=== PATIENT | male | born 1970 | race Caucasian/White ===

== ENCOUNTER 2016-09-02 15:59 | Observation (INO) | payer SELFPAY ==
[~2016-09-02] VITALS: Ht 180.3 cm; Wt 97.7 kg
[2016-09-02 16:44] LABS: HEMATOCRIT 46.7 % (42.0-54.0); HEMOGLOBIN 16.7 g/dL (13.5-17.5); MCHC 35.8 g/dL (31.0-37.0); MCV 92.3 fL (80.0-100.0); MEAN PLATELET VOLUME 11.1 fL (7.4-10.4); PLATELET COUNT 229 10x3/uL (130-400); RBC 5.06 10x6/uL (4.20-6.10); RDW 14.1 % (11.5-14.5); WBC 21.4 10x3/uL (4.8-10.8)
[2016-09-02 16:45] LABS: APPEARANCE CLEAR (CLEAR); BILIRUBIN NEGATIVE (NEGATIVE); COLOR STRAW (YELLOW); GLUCOSE NEGATIVE (NEGATIVE); KETONE NEGATIVE (NEGATIVE); NITRITE NEGATIVE (NEGATIVE); PROTEIN NEGATIVE (NEGATIVE); SPECIFIC GRAVITY 1.005 (1.005-1.020); UROBILINOGEN NORMAL (NORMAL)
[2016-09-02 16:46] LABS: BACTERIA FEW /hpf (NONE SEEN); EPITHELIAL CELLS 0-5 /hpf (0-5); LEUKOCYTE ESTERASE TRACE (NEGATIVE); RED CELLS - URINE RARE /hpf (0-5); SPERMATOZOA PRESENT /hpf (NONE SEEN); WHITE CELLS - URINE 0-5 /hpf (0-5)
[2016-09-02 16:59] LABS: ALBUMIN 3.9 g/dL (3.4-5.0); ALKALINE PHOSPHATASE 88 U/L (46-116); ALT (SGPT) 42 U/L (10-68); BILIRUBIN - TOTAL 0.51 mg/dL (0.2-1.3); CALC OSMOLALITY 272 mosm/kg (275-300); CALCIUM 9.5 mg/dL (8.5-10.1); CARBON DIOXIDE 26.5 mmol/L (21.0-32.0); CHLORIDE - SERUM 102 mmol/L (98-107); CREATININE - SERUM 0.9 mg/dL (0.6-1.3); GLUCOSE 116 mg/dL (74-106); POTASSIUM - SERUM 4.1 mmol/L (3.5-5.1); PROTEIN - SERUM 7.7 g/dL (6.4-8.2); SODIUM 136 mmol/L (136-145); UREA NITROGEN 12 mg/dL (7-18); eGFR NON AFRICAN AMERICAN > 90 mL/min (90-120)
[2016-09-02 17:24] LABS: EOSINOPHILS 1 % (0-7); LYMPHOCYTES 10 % (15-50); MONOCYTES 2 % (2-11); NEUTROPHILS 84 % (40-80); PLATELET ESTIMATE NORMAL
[2016-09-02 17:28] LABS: AMYLASE - SERUM 35 U/L (25-115); LIPASE 102 U/L (73-393)
--- NOTE | 2016-09-02 21:34 | NUR ---
PT ARRIVED TO FLOOR FROM ER BY WHEELCHAIR AND FRIENDS AND FAMILY AT SIDE. PT AMBULATORY WITH NO ASSITANCE NEEDED AND WALKED OUTSIDE TO SMOKE PER FRIENDS IN ROOM. PT ARRIVED BACK TO ROOM WITH FRIEND AT SIDE AND GAIT STEADY EVEN NO DISTRESS OBSERVED PT SAT ON BED AND ASKED FOR DISCOVERY CHANNEL AND SOMETHING TO EAT AND STATED " I NEED STRONGER PAIN MEDS BECAUSE THEN ONES GIVEN TO ME IN ER WERE NOT STRONG ENOUGH" INFORMED PT THAT HE WAS RECIVING DILAUDID FOR PAIN AND WOULD ADMIN WHEN NEXT DOSE WAS DUE/ PT VERBALIZED UNDERSTANDING PT ANSWER ALL QUESTIONS APPROPREATLY ASSESSMENT COMPLETED AND WILL MONITOR
[2016-09-02 21:56] VITALS: BP 165/108; Ht 180.3 cm; Wt 97.7 kg
--- NOTE | 2016-09-02 23:08 | NUR ---
PT UP AMBULATING IN HALLS AND OUT SIDE TO SMOKE NOTIFIED PT THAT HE DID NOT NEED TO GO OUT AND SMOKE THAT THE FACILITY WAS A SMOKE FREE FACILITY PT VERBALIZED UNDERSTANDING AND ASKED ABOUT INCREASING DOSE OF PAIN MEDS PT ON 1MG DILAUDID Q3HP FOR ABD PAIN AT THIS TIME
[2016-09-03] VITALS: BP 159/85
--- NOTE | 2016-09-03 00:01 | NUR ---
ADMIN PAIN MEDS IVP ORDERED
[2016-09-03 04:00] VITALS: BP 145/85
[2016-09-03 05:58] LABS: BASOPHILS 0.2 % (0.0-2.0); EOSINOPHILS 0.6 % (0-7); HEMATOCRIT 43.8 % (42.0-54.0); HEMOGLOBIN 14.9 g/dL (13.5-17.5); IMMATURE GRANULOCYTES 0.7 % (0-5); LYMPHOCYTES 10.9 % (15-50); MEAN PLATELET VOLUME 10.8 fL (7.4-10.4); MONOCYTES 7.4 % (2-11); NEUTROPHILS 80.2 % (40-80); PLATELET COUNT 203 10x3/uL (130-400); RBC 4.66 10x6/uL (4.20-6.10); RDW 14.2 % (11.5-14.5)
[2016-09-03 06:02] LABS: WBC 12.9 10x3/uL (4.8-10.8)
[2016-09-03 06:13] LABS: CALC OSMOLALITY 273 mosm/kg (275-300); CALCIUM 8.5 mg/dL (8.5-10.1); CARBON DIOXIDE 28.2 mmol/L (21.0-32.0); CHLORIDE - SERUM 101 mmol/L (98-107); CREATININE - SERUM 0.9 mg/dL (0.6-1.3); GLUCOSE 112 mg/dL (74-106); POTASSIUM - SERUM 3.8 mmol/L (3.5-5.1); SODIUM 137 mmol/L (136-145); UREA NITROGEN 9 mg/dL (7-18); eGFR NON AFRICAN AMERICAN > 90 mL/min (90-120)
[2016-09-03 07:54] VITALS: BP 148/100
--- NOTE | 2016-09-03 08:12 | NUR ---
PATIENT BACK TO FLOOR FROM OUTSIDE
[2016-09-03 11:52] VITALS: BP 165/106
--- NOTE | 2016-09-03 12:57 | NUR ---
Patient Name: DYLON NOONAN Admission Status: ER Accout number: [id number] Admission Date: 09-02-2016 : 1970 Admission Diagnosis: Attending: VILMA Current LOS: 1 Anticipated DC Date: 09-03-2016 Planned Disposition: Home Primary Insurance: UNINSURED DISCOUNT PLAN Discharge Planning Comments: CM MET WITH PATIENT REGARDING D/C NEEDS AND PLANS. PATIENT STATED HE IS VISITING HERE FROM [place]. PATIENT STATED HIS SISTER WILL PICK HIM UP AT DISCHARGE. PATIENT STATED THERE ARE NO STEPS OR STAIRS TO ENTER HIS SISTERS HOME. PATIENT STATED HE IS INDEPENDENT WITH HIS CARE AND HAS NO DME AT HOME. PATIENTS PCP IS DR. ALVARES IN [place] AND STATED HE WOULD USE [facility] [address] FOR HIS PHARMACY NEEDS. PATIENT STATED DOES NOT NEED HOME HEALTH. CM WILL CONTINUE TO FOLLOW PATIENT WITH D/C NEEDS AND PLANS. PCP DR. ALVARES IN [place] [facility] [address] IF NEEDED- [phone] RICARDO (SISTER) [phone] Director Process Engineering: Annamaria Rocha Is the patient Alert and Oriented? Yes 0 * How many steps to enter\exit or inside your home? 0 0 * PCP DR. ALVARES IN [facility] 0 * Pharmacy [facility] [address] 0 * Preadmission Environment Home with Family 0 * ADLs Independent 0 * Equipment None 0 * List name and contact numbers for known caregivers / representatives who currently or will assist patient after discharge: RICARDO (SISTER) [phone] 0 * Community resources currently utilized None 0 * Additional services required to return to the preadmission environment? Yes 0 * Can the patient safely return to the preadmission environment? Yes 0 * Has this patient been hospitalized within the prior 30 days at any hospital? No 0 Grand Total: 0
[2016-09-03] MEDS ORDERED: LEVAQUIN500 MG PO (13:18)
[2016-09-03] MEDS ORDERED: FLAGYL500 MG PO (13:19)
[2016-09-03] MEDS ORDERED: HYDROCODONE-APA1 TAB PO (13:20)
--- NOTE | 2016-09-03 13:57 | NUR ---
PATIENT LEFT VIA AMBULATORY. ALERT AND ORIENTED. PAPERWORK SIGNED IV REMOVED WITH [employer] TIP INTACT
== END 2016-09-03 14:08 | disposition home or self-care (01) ==
LOC: D.ER 15:59 → D.MS 19:14 → OBSVTIME 19:14 → D.MS 19:14
PROVIDERS: Emergency Medicine; Physician Assistant; ADMIT Family Medicine
DX: K57.92 Diverticulitis of intestine, part unspecified, without perforation or abscess without bleeding (principal); F17.200 Nicotine dependence, unspecified, uncomplicated